=== PATIENT | male | born 1965 | race Hispanic/Latino ===

== ENCOUNTER 2018-08-24 18:30 | Emergency (ER) | payer MEDICAID ==
[2018-08-24 18:47] VITALS: BMI 27.8
[2018-08-24] MEDS ORDERED: Multivitamin (MVI) 10 ML, Thiamine 100 MG, Folic Acid 1 MG in Sodium Chloride 0.9% 1,00... IV ONE (20:55)
--- NOTE | 2018-08-24 20:59 | ED PDOC ---
Lower Extremity Pain/Injury Time Seen by Provider: 08/24/18 20:21 Chief Complaint (Nursing): Lower Extremity Problem/Injury Chief Complaint (Provider): leg pain History Per: Patient History/Exam Limitations: no limitations Onset/Duration Of Symptoms: Days (3) Current Symptoms Are (Timing): Still Present Additional Complaint(s): 53 y/o male presents for evaluation of bilateral leg pain x 3 days. Patient states he usually takes Gabapentin for neuropathy, but has been staying with a friend for the last few days and did not bring it with him. Patient states he has been drinking due to the pain. Denies fever, headache, nausea/vomiting, chest pain, shortness of breath, palpitations, calf pain/swelling. Past Medical History Reviewed: Historical Data, Nursing Documentation, Vital Signs Vital Signs: Last Vital Signs Temp 98.3 F 08/24/18 18:45 Pulse 108 H 08/24/18 18:45 Resp 16 08/24/18 18:45 BP 131/85 08/24/18 18:45 Pulse Ox 96 08/24/18 18:45 - Medical History PMH: Depression - Surgical History Surgical History: No Surg Hx - Family History Family History: States: Unknown Family Hx - Immunization History Hx Tetanus Toxoid Vaccination: No Hx Influenza Vaccination: No Hx Pneumococcal Vaccination: No - Home Medications Home Medications: Ambulatory Orders Medication Instructions Recorded Escitalopram [Lexapro] 100 mg PO DAILY 08/23/18 Gabapentin [Neurontin] 1,200 mg PO TID 08/23/18 chlordiazePOXIDE [Librium] 100 mg PO DAILY 08/23/18 traZODone [Desyrel] 100 mg PO DAILY 08/23/18 - Allergies Allergies/Adverse Reactions: Allergies Allergy/AdvReac Type Severity Reaction Status Date / Time No Known Allergies Allergy Verified 08/24/18 18:44 Review of Systems ROS Statement: Except As Marked, All Systems Reviewed And Found Negative Musculoskeletal: Positive for: Leg Pain Physical Exam - Reviewed Nursing Documentation Reviewed: Yes Vital Signs Reviewed: Yes - Physical Exam Appears: Positive for: Well, Non-toxic, No Acute Distress Head Exam: Positive for: ATRAUMATIC, NORMAL INSPECTION, NORMOCEPHALIC Skin: Positive for: Normal Color Eye Exam: Positive for: Normal appearance ENT: Positive for: Normal ENT Inspection Cardiovascular/Chest: Positive for: Regular Rate, Rhythm Respiratory: Positive for: Normal Breath Sounds Gastrointestinal/Abdominal: Positive for: Normal Exam Back: Positive for: Normal Inspection Extremity: Positive for: Normal ROM. Negative for: Calf Tenderness Neurological/Psych: Positive for: Awake, Alert, Oriented - Laboratory Results Result Diagrams: 08/24/18 21:20 08/24/18 21:20 - ECG ECG: Positive for: Viewed By Me (reviewed by ED attending) ECG Rhythm: Positive for: Sinus Tachycardia O2 Sat by Pulse Oximetry: 96 - Progress ED Course And Treament: -accucheck -cbc -cmp -alcohol -magnesium -phosphorus -IV banana bag -PO Gabapentin Patient given Potassium PO and IV doses in ED On re-eval patient sleeping; upon awakening states he is feeling better. Vitals stable Patient educated on findings, discharged with instructions to follow up with PMD within 2-3 days Return precautions given Disposition - Clinical Impression Clinical Impression: Leg pain, bilateral, Hypokalemia, Alcohol use - Patient ED Disposition Is Patient to be Admitted: No Counseled Patient/Family Regarding: Studies Performed, Diagnosis, Need For Followup - Disposition Disposition: Routine/Home Disposition Time: 00:30 Condition: IMPROVED Instructions: Alcohol Use - When Is Drinking a Problem?, Hypokalemia
[2018-08-24 21:31] LABS: BASO # 0.1 K/uL (0.0-0.2); BASO % 0.8 % (0.0-2.0); EOS # 0.2 K/uL (0.0-0.7); HEMOGLOBIN 13.8 g/dL (12.0-18.0); LYMPH # 2.3 K/uL (1.0-4.3); LYMPH % 30.4 % (20.0-40.0); MEAN CELL VOLUME 90.9 fl (80.0-94.0); MEAN CORPUSCULAR HEMOGLOBIN 30.9 pg (27.0-31.0); MEAN CORPUSCULAR HGB CONC 33.9 g/dL (33.0-37.0); MEAN PLATELET VOLUME 6.4 fl (7.2-11.7); MONO # 0.8 K/uL (0.0-0.8); MONO % 10.2 % (0.0-10.0); NEUT # 4.3 K/uL (1.8-7.0); NEUT % 56.6 % (50.0-75.0); NRBC % 0.1 % (0.0-0.0); RBC 4.47 Mil/uL (4.40-5.90); WHITE BLOOD COUNT 7.5 K/uL (4.8-10.8)
[2018-08-24 21:49] LABS: ALB/GLOB RATIO 1.5 (1.0-2.1); ALBUMIN 4.6 g/dL (3.5-5.0); ALT/SGPT 34 U/L (21-72); AST/SGOT 46 U/L (17-59); BLOOD UREA NITROGEN 7 mg/dl (9-20); CALCIUM 9.4 mg/dL (8.4-10.2); GFR NON-AFRICAN AMERICAN > 60
[2018-08-24] MEDS ORDERED: Potassium Chloride 20 mEq ER Tab PO ONE ×2 (22:10→22:36)
[2018-08-24] MEDS ORDERED: Potassium CL 10 MEQ/50 ML 50 ML IVPB ONE (22:10)
[2018-08-24] MEDS ORDERED: Potassium CL 10 MEQ/50 ML 50 ML ONE (22:37)
[2018-08-25 00:37] VITALS: BP 117/72; PULSE 89; RESP 16
[2018-08-25 00:39] VITALS: TEMP 99
[2018-08-25 04:40] VITALS: O2SAT 96
--- NOTE | 2018-08-25 08:58 | CARD ---
APPROVED REPORT Date of service: 08/24/2018 EKG Measurement Heart [id number] <Conclusion> Sinus tachycardia Low voltage QRS Septal infarct, age undetermined Abnormal ECG
== END 2018-08-25 01:25 | disposition home or self-care (01) ==
LOC: H.ER 18:30
DX: M79.605 Pain in left leg (principal); M79.604 Pain in right leg; E87.6 Hypokalemia; F10.10 Alcohol abuse, uncomplicated; Z86.59 Personal history of other mental and behavioral disorders
CPT/HCPCS: 80053; 80320; 82948; 83735; 84100; 85025; 93005; 96365; 99284; J3411; J3480; J7030